=== PATIENT | male | born 2005 | race Caucasian/White ===

== ENCOUNTER 2025-01-26 10:09 | Emergency (ER) | payer OTHER ==
[~2025-01-26] VITALS: Ht 177.8 cm; Wt 97.7 kg
[2025-01-26] MEDS ORDERED: NS 1,000 ML IV ONE (10:30)
[2025-01-26 10:39] LABS: ALBUMIN 4.6 g/dL (3.5-5.0)
[2025-01-26 10:40] LABS: CALCIUM 9.2 mg/dL (8.3-10.5)
[2025-01-26 10:41] LABS: TOTAL PROTEIN 7.5 g/dL (6.4-8.3)
[2025-01-26 10:42] LABS: HEMOGLOBIN 16.9 g/dL (13.5-18.0); MEAN CELL VOLUME 87 fl (78-100); MEAN CORPUSCULAR HEMOGLOBIN 31 pg (27-31); MEAN CORPUSCULAR HGB CONC 35 g/dL (33-37); MEAN PLATELET VOLUME 8.7 fl (7.4-10.4); PLATELET COUNT 231 K/mm3 (130-400); RED BLOOD COUNT 5.52 M/mm3 (4.20-5.60); RED CELL DISTRIBUTION WIDTH 11.7 % (11.5-14.5); WHITE BLOOD COUNT 13.6 K/mm3 (4.8-10.8)
[2025-01-26 10:43] LABS: TOTAL BILIRUBIN 0.8 mg/dL (0.2-1.2)
[2025-01-26] MEDS ORDERED: Ondansetron 4 MG/2 ML VIAL IV ONE (10:45)
[2025-01-26 11:17] LABS: LYMPHOCYTE 5 % (20-51); MONOCYTE 3 % (3-10); NEUTROPHILS 91 % (42-75)
[2025-01-26] MEDS ORDERED: Iohexol 300 - 100 ML VIAL IV ONE (11:36)
[2025-01-26] MEDS ORDERED: NS 100 ML IV SCH (11:36)
[2025-01-26] MEDS ORDERED: cefTRIAXone 1 G in Water For Injection,Sterile 10 ML IV ONE (12:15)
[2025-01-26] MEDS ORDERED: NS 1,000 ML IV SCH (12:15)
[2025-01-26] MEDS ORDERED: ZOFRAN ODT4 MG PO (12:50)
[2025-01-26 13:23] VITALS: BP 118/55
== END 2025-01-26 13:23 | disposition home or self-care (01) ==
LOC: ED 10:09
PROVIDERS: Family Medicine
DX: R11.2 Nausea with vomiting, unspecified (principal); D72.829 Elevated white blood cell count, unspecified; R94.4 Abnormal results of kidney function studies; R10.819 Abdominal tenderness, unspecified site
CPT/HCPCS: J0696; J2405; J7030; Q9967